=== PATIENT | female | born 1985 | race Caucasian/White ===

== ENCOUNTER 2019-03-17 06:09 | Inpatient (IN) | payer OTHER, SELFPAY ==
[2019-03-10 12:56] VITALS: BMI 29.8
[2019-03-17] VITALS (19 sets, daily range): BP systolic 97–124; BP diastolic 56–81; PULSE 90–113; RESP 8–16; TEMP 36.2–37; O2SAT 90–100; BMI 28.0
--- NOTE | 2019-03-17 | DI.RAD.S_ITS ---
PROCEDURE: XR CERVICAL SPINE 2V OR 3V INDICATIONS: C4-5-6 ACDF TECHNIQUE: 2 view(s) of the cervical spine were acquired. COMPARISON: None. FINDINGS: Bones: Postsurgical changes compatible with C5-C6 and C6-C7 discectomy with disc prosthesis placement noted. Disc prostheses are normally positioned. Soft tissues: No prevertebral soft tissue swelling. IMPRESSION: Expected postsurgical change or C4-C5 and C5-C6 discectomy and disc prosthesis placement. Dictated by: Sophia Rashid MD, PhD on 03/17/2019 at 10:16 Approved by: Sophia Rashid MD, PhD on 03/17/2019 at 10:20
[2019-03-17] MEDS: LACTATED RINGERS 1,000 ML 42 ML IV ×2 (06:50→10:47)
--- NOTE | 2019-03-17 07:28 | PM.PREOP ---
Pre-operative Note Interval Note History & Physical reviewed/Exam performed by Physician: Yes Changes to H&P: No
--- NOTE | 2019-03-17 07:35 | PM.OP.1 ---
Operative Date/Time/Diagnoses Date of procedure: 03/17/19 Time of procedure: 09:51 Pre-op diagnosis: Cervical disc herniation with radiculopathy Post-op diagnosis: same Procedure & Clinicians Procedure: C4-5, C5-6 anterior diskectomy and artificial disc replacement Use of microscope Same procedure as scheduled: Yes Indications: [age] year old female with intractable pain from cervical disc herniation and radiculopathy. They had failed conservative management and requested operative intervention. Risks and benefits of surgery were discussed and appropriate consents were obtained. Surgeon: Musa Rodrigues Manager Of Maintenance: Chata Mattson Anesthesia Type: General Operative Notes Findings: None Closure Type: primary Specimen(s): none sent Prosthetic devices, grafts, tissues, transplants, or devices: susan Mobi-C [id number] each level Estimated Blood Loss (mL): 120 Blood products transfused: none Procedure in detail: Patient was brought to the operating room and intubated on the table. A time-out was performed. Preoperative antibiotics were given. The neck was prepped and draped in the standard sterile fashion. Using a skin fold, we made a 3 cm oblique incision on the left side. We used Bovie to go through the platysma and then did a standard anterolateral blunt dissection down to the precervical fascia. Fascia was nicked and elevated up. A marker was placed and x-ray was taken for localization. We then subperiosteally elevated up the longus colli muscles. Self-retaining retractors were placed. Clontarf pins were placed under x-ray guidance to be parallel to the endplates. We then brought in the microscope. A scalpel used to perform an annulotomy. We then used a combination of pituitaries and curettes and Kerrison to perform a complete anterior diskectomy at C4-5. We took down the PLL and used Kerrison to remove any posterior disc material and osteophytes. She had a large amount of lateral epidural bleeding that was finally stopped with gelfoam and thrombin in the lateral foramen. We removed this once it stopped bleeding. At the end we could from the nerve hook cephalad caudally and out the foramen and everything was opened. We distracted open with the parallel heavy equipment sales associate. We then used the horseshoes for sizing. We then used the trials. We then inserted a 13 x 15 x 5 mm size Mobi-C artificial disc replacement under fluoroscopic guidance for positioning. The traction was released and x-ray was checked again. We then moved our retraction pins down to C5-6. A complete diskectomy was performed with a scalpel, pituitaries, curettes. We took down the PLL. Posterior disc material was removed. a nerve hook was used to check to make sure that the neural foramen and canal were open. We then trialed and placed another 13 x 15 x 5 mm Mobi- C artificial disc replacement. The self-retaining retractors and Clontarf pins were removed and final x-rays taken. The wound was irrigated. There was no bleeding. The carotid was beating nicely. The platysma was closed. The superficial was closed. The skin was closed. A sterile dressing was placed. They were then extubated and brought to recovery room with no complications. Complications: none Condition: stable Disposition: PACU Plan for aftercare: Overnight admission. Up with physical therapy.
[2019-03-17] MEDS: CLINDAMYCIN 900 MG/50 ML PIGGYBACK 50 MG IV ×2 (07:40→16:24)
--- NOTE | 2019-03-17 08:13 | SUR.OPER ---
Supine on padded OR bed, head gel doughnut, shoulder roll positioned anterior/ posteriorly under body, arms padded and tucked at side, legs uncrossed, safety belt at thigh, tape over blanket over lower legs .
[2019-03-17] MEDS: SODIUM CHLORIDE 0.9% 1,000 ML, GENTAMICIN 80 MG IRR (08:25)
[2019-03-17] MEDS: THROMBIN (RECOMBINANT) 5,000 UNIT VIAL 5000 UNIT TOP (08:27)
[2019-03-17] MEDS: fentaNYL 100 MCG/2 ML INJ 50 MCG IV ×3 (09:58→10:40)
[2019-03-17] MEDS: HYDROMORPHONE 2 MG INJ 0.5 MG IV ×4 (10:02→10:36)
[2019-03-17] MEDS: hydrOXYzine pamoate 25 MG CAPSULE 50 MG PO (10:33)
--- NOTE | 2019-03-17 11:12 | SUR.PHASEI ---
pt transferred to acute care floor in stable condition, vss. pt alert and talking to rn during transport. bedside report given to PEDRO Reina upon arrival to room. drsg observed to be c/d/i. soft neck collar in place. equal strength and senstation in all four extremities. family arriving to room upon arrival to room. transferred care of pt to Latosha at that time. pt transferred to acute care floor on room air, 02 sats remained 97-100%.
--- NOTE | 2019-03-17 11:13 | PC.NURSE ---
Pt arrived via PACU accompanied by RN and ART HANDLER. Pt alert, aware of transfer to room. Pt making needs known appropriately. Family at bedside. IV intact and HL'd, surgical site intact, PP positive.
[2019-03-17] MEDS: LACTATED RINGERS 1,000 ML 125 ML IV ×2 (11:53→20:49)
[2019-03-17] MEDS: HYDROMORPHONE 1 MG INJ 0.5 MG IV (11:53)
[2019-03-17] MEDS: HYDROMORPHONE 2 MG TABLET PO (12:51)
[2019-03-17] MEDS: hydrOXYzine pamoate 25 MG CAPSULE PO (12:51)
--- NOTE | 2019-03-17 14:43 | CM.DANOTE ---
DCP Cont: Case received, EMR reviewed and met with patient. Introduced self and role. Was able to complete DCP template with information available. Patient is a 33 year old female who admitted early this morning to the care of the hospitalist team. PCP: Dr. Gillis. Payer: confirmed: [facility]. Patient came to hospital for surgical procedure. Patient had C4-5, C5-6 Anterior Diskectomy with artificial disc replacement. Patient has had history of chronic left sided neck pain. Met briefly with patient in room. She was awake, laying in bed. Had family at bedside, , children, parent. She resides in [facility] with her spouse, Jeremi. Patient is independent at baseline. Has not yet worked with physical therapy. P: DCP to continue to follow. Patient should be able to go home when she is medically stable. She will also be working with physical therapy. Micki Elizondo RN/Die Cut Operator
--- NOTE | 2019-03-17 15:21 | PC.NURSE ---
Patient received from PACU, VSS, cervical soft collar in place with dressing CDI. oriented to room and call light. IV fluids started as ordered. Patient's family at bedside, call light within reach.
--- NOTE | 2019-03-17 15:32 | PT.IIE ---
Current Diagnoses Other cervical disc displacement, unspecified cervical region (03/17/19) Radiculopathy, cervical region (03/17/19) Surgery Performed Operation Date: 03/17/19 07:45 Actual Procedures p C4-5,C5-c6 anterior discectomy w/Disc Replacement - Musa Rodrigues MD Surgical History (Last Updated 03/10/19 @ 13:08 by Celine Quiros RN) History of section (Acute) S/P LASIK surgery of both eyes (Acute) Medical History (Last Updated 03/10/19 @ 13:07 by Celine Quiros RN) Anxiety (Acute) Depression (Acute) Easy bruisability (Acute) H/O: hysterectomy (Acute) Numbness (Acute) Seasonal allergies (Acute) Physical Therapy Inpatient Evaluation/Re-Eval M1 PT/OT-IP Prior Functional Status Start: 03/17/19 17:09 Freq: NEEDED Status: Active Protocol: Document 03/17/19 15:32 AB (Rec: 03/17/19 17:21 AB [id number]) Medical Review Prior Functional Status Medical History Reviewed Yes Communication able to make needs known Mobility and Gait pt stated that she is independent with all mobilities and ambulation without AD Social History Household Members spouse children Living Arrangements House Number of Floors (Floors) One Floor Number of Stairs To Enter/Railing? 1 step to enter Home Environment Standard Height Toilet Walk in Shower Home Equipment Grab Bars In Shower Employment Status Unemployed M2 PT-IP Current Condition Start: 03/17/19 17:09 Freq: NEEDED Status: Active Protocol: Document 03/17/19 15:32 AB (Rec: 03/17/19 17:21 AB [id number]) Physical Therapy Current Condition Current Condition Evaluation Date 03/17/19 Treatment Diagnosis s/p C4-6 anterior discectomy & artificial disc replacement; diff in walking Onset Date 03/17/19 Precautions Cervical Spine Precautions Soft Collar for Comfort No Heavy Lifting Log Roll Brace soft collar M3 PT-IP Subjective Start: 03/17/19 17:09 Freq: NEEDED Status: Active Protocol: Document 03/17/19 15:32 AB (Rec: 03/17/19 17:21 AB [id number]) Subjective Physical Therapy Visit Type Type Initial Evaluation Visit Start Time 15:32 Visit Stop Time 15:56 Total Visit Minutes 24 Number of TONE REGULATOR Visits 0 Physical Therapy Visit Comments Patient Comments pt requested to use the toilet Therapy Pain Assessment Pain When Pain Assessed At Rest Pain Present Pain Present Pain Reported Location neck Intensity 7 Scale Used Numeric (1 - 10) Pain Management Techniques Re-positioning Timing of Activity with Medications M4 PT-IP Mobility and Gait Start: 03/17/19 17:09 Freq: NEEDED Status: Active Protocol: Document 03/17/19 15:32 AB (Rec: 03/17/19 17:21 AB [id number]) PT-Bed Mobility Assessment Rolling Type of Rolling Log Rolling Level of Assist Standby Assistance Supine to Sit Supine to Sit Standby Assistance Sit to Supine Sit to Supine Standby Assistance Scooting Scooting to Edge of Bed Standby Assistance PT-Transfer Assessment Sit to and From Stand Sit to and from Stand Standby Assistance Equipment Transfer Assistive Device Gait Belt Front Wheeled Walker Orthotic/Prosthetic Devices or Brace: Yes Transfers Transfer Destination Toilet Transfer Technique pt ambulated to the toilet Transfer Ability Level of Assist Standby Assistance Comments Mobility Comments pt initially feeling unsteady and used FWW to ambulate to the toilet. pt ambulated without AD out of the toilet SBA but pt stated that she feels foggy and prefers to hold on to IV pole for support . Educated pt on donning/ doffing of soft collar. pt educated on log roll bed mobility and pt completed with sBA. pt requested to go use the toilet again and ambulated to the toilet pushing with IV pole SBA. left pt in the toilet. call light within reach. informed nurse. Gait Assessment Gait Gait Assistance Required: Standby Assistance Distance (Feet) 30 Able to Maintain Weight Bearing Status Yes During Gait Assistive Devices Assistive Device None Gait Belt Front Wheeled Walker Orthotic/Prosthetic Devices or Brace: Yes Factors Limiting Gait Function Factors Limiting Gait Function Decreased Activity Tolerance Decreased Strength Limited Range of Motion Pain Comments Gait Comments pt ambulated using FWW ~ 10 ft SBA; without AD ~ 30 ft SBA and then pushing with IV pole SBA ~ 30 ft. PT-Balance Assessment Sitting Balance and Reactions Static Sitting Balance Ability Normal Dynamic Sitting Balance Ability Normal Standing Balance and Reactions Static Standing Balance Ability Good Dynamic Standing Balance Ability Fair Device Used without AD M5 PT-IP Objective Assessments Start: 03/17/19 17:09 Freq: NEEDED Status: Active Protocol: Document 03/17/19 15:32 AB (Rec: 03/17/19 17:21 AB [id number]) Orientation Orientation/Cognition Level of Alertness Alert Orientation Name Age Birthday Month Date Year Day of Week Place Situation Safety Awareness Understands Safety Issues Memory Description No Deficits Noted Gross Range of Motion Lower Extremity ROM Assessment Within Functional Limits Strength Lower Extremity Strength Assessment Within Functional Limits Coordination Assessment Gross Coordination Gross Coordination WNL Muscle Tone Muscle Tone WNL Yes M6 PT-IP Treatment Start: 03/17/19 17:09 Freq: NEEDED Status: Active Protocol: Document 03/17/19 15:32 AB (Rec: 03/17/19 17:21 AB [id number]) Physical Therapy Treatment Education Education Provided Precautions Post-Op Packet Safety Brace Education [place] Patient M7 PT-IP Assessment and Plan Start: 03/17/19 17:09 Freq: NEEDED Status: Active Protocol: Document 03/17/19 15:32 AB (Rec: 03/17/19 17:21 AB [id number]) PT Summary Assessment and Plan Potential Rehabilitation Potential Good Status of Condition at Evaluation Stable Summary Impairments Pain ROM Strength Balance Coordination Sensation Bed Mobility Transfers Gait Activity Tolerance Assessment Summary pt requiring SBA with mobility and plans to go home with spouse to assist her. pt still feels foggy and unsteady today. pt just had sx this morning. Pt likely to improve during hospital stay but if pt continues to feel unsteady, will assess safety with use of a SPC. Pt's duaznl-ja-hle stated that she has a SPC that pt can use. will continue to assess. Goals Bed Mobility Goal Independent Transfer Goal Independent Gait Goal Independent Gait Distance 250 Other Goals up/down 1 step without AD SBA Days to Meet Goals 3 Frequency of Treatment Frequency Of Treatment Twice a Day Treatment Plan Physical Therapy Treatment Plan Bed Mobility Training Transfer Training Gait Training Therapeutic Exercise Balance Retraining Post Op Education Discharge Planning Hot or Cold Pack Neuromuscular Re-ed Coordination Retraining Manual Therapy Other Recommendations and Next Treatment ambulation, stair climbing Focus Recommendations To Nursing Amount of Assist Needed Standby Assistance Discharge Recommendations PT Discharge Recommendations Home with Assistance
[2019-03-17] MEDS: HYDROMORPHONE 4 MG TABLET PO ×2 (16:24→20:46)
[2019-03-17] MEDS: NAPROXEN 250 MG TABLET 500 MG PO (16:27)
[2019-03-17] MEDS: DOCUSATE 100 MG CAPSULE PO (20:49)
[2019-03-17] MEDS: SENNOSIDES 8.6 MG TABLET 17.2 MG PO (20:49)
[2019-03-17] MEDS: buPROPion SR 100 MG TAB PO (20:49)
[2019-03-17] MEDS: GABAPENTIN 600 MG TABLET PO (20:49)
[2019-03-18] MEDS: HYDROMORPHONE 2 MG TABLET PO ×2 (00:09→00:10)
[2019-03-18] MEDS: CLINDAMYCIN 900 MG/50 ML PIGGYBACK 50 MG IV (00:10)
[2019-03-18] MEDS: HYDROMORPHONE 4 MG TABLET PO ×2 (04:52→08:38)
[2019-03-18 04:59] VITALS: BP 99/56; PULSE 85; RESP 16; TEMP 37
[2019-03-18] MEDS: HYDROMORPHONE 1 MG INJ 0.5 MG IV (07:29)
[2019-03-18 07:30] VITALS: BP 114/70; PULSE 91; RESP 16; TEMP 37; O2SAT 99
--- NOTE | 2019-03-18 07:59 | PM.PNPO.1 ---
Subjective Date Patient Seen: 03/18/19 Time Patient Seen: 07:59 Interval history: She is doing well. Pain over the shoulders. No itching with the Dilaudid. Still numb in Left arm. Exam Vital Signs (past 8 hours): - 03/18/19 04:59 Temperature 98.6 F Pulse Rate 85 Respiratory Rate 16 Blood Pressure 99/56 L Oxygen Delivery Method Nasal Cannula Oxygen Flow Rate 2 Const Orientation: alert and oriented x3 Back/Spine/Pelvis Other: CDI. 5/5 motor both upper extremities. Assessment & Plan Post-op Postoperative Procedures Operation Date: 03/17/19 07:45 Actual Procedures Side Surgeon p C4-5,C5-c6 anterior discectomy w/Disc Replacement Musa Rodrigues MD She is doing well. Mobilize with therapy this morning and then discharge home.
[2019-03-18] MEDS: NAPROXEN 250 MG TABLET 500 MG PO (08:39)
[2019-03-18] MEDS: GABAPENTIN 600 MG TABLET PO (08:39)
[2019-03-18] MEDS: LORATADINE 10 MG TABLET PO (08:39)
[2019-03-18] MEDS: buPROPion SR 100 MG TAB PO (08:40)
[2019-03-18] MEDS: DOCUSATE 100 MG CAPSULE PO (08:40)
--- NOTE | 2019-03-18 08:42 | OT.IP.TRT ---
Current Diagnoses Other cervical disc displacement, unspecified cervical region (03/17/19) Radiculopathy, cervical region (03/17/19) Surgery Performed Operation Date: 03/17/19 07:45 Actual Procedures p C4-5,C5-c6 anterior discectomy w/Disc Replacement - Musa Rodrigues MD Occupational Therapy Treatment Note M3 OT- IP Subjective and Pain Start: 03/18/19 08:31 Freq: Status: Active Protocol: Document 03/18/19 08:31 [facility] (Rec: 03/18/19 08:41 [facility] [id number]) OT- Subjective Occupational Therapy Visit Type Type Administrative Note Notes Pt states doing well, already using the bathroom and has not been using any devices now. Emphasized to eat softer food initially, able to shower with soft colar on and to put in the the dryer afterwards for a few minutes, and in addition okay to ice her neck as needed . Pt to have to assist her at home. Therefore, discharge OT eval orders. PT still following pt for mobility needs.
--- NOTE | 2019-03-18 09:20 | PT.IPTN ---
Current Diagnoses Other cervical disc displacement, unspecified cervical region (03/17/19) Radiculopathy, cervical region (03/17/19) Surgery Performed Operation Date: 03/17/19 07:45 Actual Procedures p C4-5,C5-c6 anterior discectomy w/Disc Replacement - Musa Rodrigues MD Physical Therapy Treatment Note M2 PT-IP Current Condition Start: 03/17/19 17:09 Freq: NEEDED Status: Active Protocol: Document 03/17/19 15:32 AB (Rec: 03/17/19 17:21 AB [id number]) Physical Therapy Current Condition Current Condition Evaluation Date 03/17/19 Treatment Diagnosis s/p C4-6 anterior discectomy & artificial disc replacement; diff in walking Onset Date 03/17/19 Precautions Cervical Spine Precautions Soft Collar for Comfort No Heavy Lifting Log Roll Brace soft collar M3 PT-IP Subjective Start: 03/17/19 17:09 Freq: NEEDED Status: Active Protocol: Document 03/18/19 09:20 GGD (Rec: 03/18/19 11:28 GGD [id number]) Subjective Physical Therapy Visit Type Type Treatment Note Visit Start Time 09:00 Visit Stop Time 09:20 Total Visit Minutes 20 Number of MACHINE HOOP MAKER HELPER Visits 1 Physical Therapy Visit Comments Patient Comments Pt states that she feels ready to go home. M4 PT-IP Mobility and Gait Start: 03/17/19 17:09 Freq: NEEDED Status: Active Protocol: Document 03/18/19 09:20 GGD (Rec: 03/18/19 11:28 GGD [id number]) PT-Bed Mobility Assessment Rolling Type of Rolling Log Rolling Level of Assist Standby Assistance Supine to Sit Supine to Sit Standby Assistance Sit to Supine Sit to Supine Standby Assistance Scooting Scooting to Edge of Bed Independent PT-Transfer Assessment Sit to and From Stand Sit to and from Stand Standby Assistance Equipment Transfer Assistive Device Gait Belt Front Wheeled Walker Orthotic/Prosthetic Devices or Brace: Yes Transfers Transfer Destination Bed Transfer Ability Level of Assist Standby Assistance Gait Assessment Gait Gait Assistance Required: Standby Assistance Distance (Feet) 130 Able to Maintain Weight Bearing Status Yes During Gait Assistive Devices Assistive Device None Gait Belt Orthotic/Prosthetic Devices or Brace: Yes Factors Limiting Gait Function Factors Limiting Gait Function Decreased Activity Tolerance Decreased Strength Limited Range of Motion Pain Stair Climbing Assessment Evaluation Level of Assist On Stairs Standby Assistance Contact Guard Assistance Devices Stair Climbing Assistive Devices None Technique/Endurance Stair Climbing Direction Ascend and Descend Stair Climbing Technique Step to Step Number of Steps Climbed 3 Query Text: Stair Climbing Set # Repetitions (reps) 1 M5 PT-IP Objective Assessments Start: 03/17/19 17:09 Freq: NEEDED Status: Active Protocol: Document 03/17/19 15:32 AB (Rec: 03/17/19 17:21 AB [id number]) Orientation Orientation/Cognition Level of Alertness Alert Orientation Name Age Birthday Month Date Year Day of Week Place Situation Safety Awareness Understands Safety Issues Memory Description No Deficits Noted Gross Range of Motion Lower Extremity ROM Assessment Within Functional Limits Strength Lower Extremity Strength Assessment Within Functional Limits Coordination Assessment Gross Coordination Gross Coordination WNL Muscle Tone Muscle Tone WNL Yes M6 PT-IP Treatment Start: 03/17/19 17:09 Freq: NEEDED Status: Active Protocol: Document 03/18/19 09:20 GGD (Rec: 03/18/19 11:28 GGD [id number]) Physical Therapy Treatment Education Education Provided Precautions M7 PT-IP Assessment and Plan Start: 03/17/19 17:09 Freq: NEEDED Status: Active Protocol: Document 03/18/19 09:20 GGD (Rec: 03/18/19 11:28 GGD [id number]) PT Summary Assessment and Plan Summary Assessment Summary Pt improving with her mobility . She was safe and stable with gait without assistive device and with stair mobility. Pt safe for home D/C when medically stable. Frequency of Treatment Frequency Of Treatment Twice a Day Treatment Plan Physical Therapy Treatment Plan Bed Mobility Training Transfer Training Gait Training Therapeutic Exercise Balance Retraining Post Op Education Discharge Planning Hot or Cold Pack Neuromuscular Re-ed Coordination Retraining Manual Therapy Other Recommendations and Next Treatment ambulation, stair climbing Focus Recommendations To Nursing Amount of Assist Needed Standby Assistance Discharge Recommendations PT Discharge Recommendations Home with Assistance
[2019-03-18] MEDS: hydrOXYzine pamoate 25 MG CAPSULE PO (10:36)
--- NOTE | 2019-03-18 11:14 | ST.IPSCREEN ---
pt screened for voice and swallow following ACDF surgery yesterday afternoon. Pt's voice is hoarse which was explained to be normal. Pt reported no difficulties swallowing. Pt encouraged to contact MD if both voice and swallowing are not returned to normal in 2 weeks. Pt agreed.
--- NOTE | 2019-03-18 11:39 | PC.NURSE ---
Avani was disch. in stable condition at 1130. She is up and amb. freely in room and halls with soft collar in place. She reports adq. pain control with oral Dilaudid, and, later, Vistaril for muscle spasms of right shoulder. She is eating and taking fluids and voiding w/ out difficulty. supportive at bedside. Avani's neurovasc. assessment is WDL. Her cervical drsg. is clean/dry/intact.
== END 2019-03-18 11:35 | disposition home or self-care (01) | DRG 518 ==
PROVIDERS: Admitting Provider Orthopaedic Surgery; PCP Family Medicine; Visit Provider Orthopaedic Surgery
PROC: 0RR30JZ Replacement of Cervical Vertebral Disc with Synthetic Substitute, Open Approach (ICD-10-PCS; CPT 22856; principal; 2019-03-17 07:45)
DX: M48.02 Spinal stenosis, cervical region (principal); M50.121 Cervical disc disorder at C4-C5 level with radiculopathy; F32.9 Major depressive disorder, single episode, unspecified
CPT/HCPCS: 72040; 76000; 97116; 97161; C1776; J1100; J1170; J2250; J2405; J2704; J3010